=== PATIENT | female | born 1940 | race Caucasian/White ===

== ENCOUNTER 2019-01-17 08:00 | Outpatient (CLI) | payer MEDICARE ==
[2019-01-17 13:38] LABS: ALBUMIN 4.1 g/dL (3.2-5.5); ALBUMIN/GLOBULIN RATIO 1.2 (1.0-2.2); ALKALINE PHOSPHATASE 90 IU/L (42-121); ALT ALANINE AMINOTRANSFERASE 22 IU/L (10-60); AST ASPARTATE AMINOTRANSFERASE 27 IU/L (10-42); BILIRUBIN,TOTAL 0.4 mg/dL (0.2-1.0); BUN - BLOOD UREA NITROGEN 17 mg/dL (6-20); CALCIUM 9.5 mg/dL (8.5-10.3); CARBON DIOXIDE - CO2 26 mmol/L (21-32); CHLORIDE 104 mmol/L (101-111); CHOL/HDL RATIO 3.7 (<4.4); CHOLESTEROL 265 mg/dL; CREATININE 0.4 mg/dL (0.4-1.0); GFR - MDRD 155 (>89); GLUCOSE 96 mg/dL (70-100); HDL CHOLESTEROL 72 mg/dL; LDL CHOLESTEROL,CALCULATED 169 mg/dL; LDL/HDL RATIO 2.3 (<4.4); SODIUM 140 mmol/L (135-145); TOTAL PROTEIN 7.5 g/dL (6.7-8.2); VLDL CHOLESTEROL 24 mg/dL
[2019-01-17 13:39] LABS: BASOPHILS # (AUTO) 0.1 10^3/uL (0.0-0.1); BASOPHILS % (AUTO) 0.9 %; EOSINOPHILS # (AUTO) 0.1 10^3/uL (0.0-0.7); HGB - HEMOGLOBIN 13.4 g/dL (12.0-16.0); LYMPHOCYTES # (AUTO) 2.8 10^3/uL (1.5-3.5); LYMPHOCYTES % (AUTO) 31.8 %; MEAN CORPUSCULAR HEMOGLOBIN 31.4 pg (27.0-31.0); MEAN CORPUSCULAR HGB CONC 31.5 g/dL (32.0-36.0); MEAN CORPUSCULAR VOLUME 99.8 fL (81.0-99.0); MEAN PLATELET VOLUME 10.7 fL (7.9-10.8); MONOCYTES # (AUTO) 0.7 10^3/uL (0.0-1.0); MONOCYTES % (AUTO) 8.5 %; NEUTROPHILS % (AUTO) 57.3 %; PLT - PLATELET COUNT 295 10^3/uL (130-450); RED BLOOD COUNT 4.27 10^6/uL (4.20-5.40); RED CELL DISTRIBUTION WIDTH 12.5 % (12.0-15.0); WHITE BLOOD COUNT 8.7 x10^3/uL (4.8-10.8)
[2019-01-17 13:42] LABS: HB2 TOTAL 13.8 g/dL; HEMOGLOBIN A1C 0.47 g/dL; HEMOGLOBIN A1C % 5.3 % (4.6-6.2)
== END 2019-01-17 08:01 | disposition home or self-care (01) ==
LOC: LAB.WCP 08:00
PROVIDERS: ATTEND Family Medicine
DX: I10 Essential (primary) hypertension (principal); E74.39 Other disorders of intestinal carbohydrate absorption
CPT/HCPCS: 36415; 80053; 80061; 83036; 83721; 85025

== ENCOUNTER 2019-07-13 08:00 | Outpatient (CLI) | payer MEDICARE ==
[2019-07-13 18:37] LABS: BASOPHILS # (AUTO) 0.1 10^3/uL (0.0-0.1); EOSINOPHILS # (AUTO) 0.2 10^3/uL (0.0-0.7); EOSINOPHILS % (AUTO) 1.7 %; HGB - HEMOGLOBIN 12.6 g/dL (12.0-16.0); LYMPHOCYTES # (AUTO) 2.9 10^3/uL (1.5-3.5); LYMPHOCYTES % (AUTO) 31.3 %; MEAN CORPUSCULAR HEMOGLOBIN 30.8 pg (27.0-31.0); MEAN CORPUSCULAR VOLUME 96.3 fL (81.0-99.0); MEAN PLATELET VOLUME 11.4 fL (7.9-10.8); MONOCYTES % (AUTO) 10.8 %; NEUTROPHILS % (AUTO) 54.9 %; PLT - PLATELET COUNT 310 10^3/uL (130-450); RED BLOOD COUNT 4.09 10^6/uL (4.20-5.40); RED CELL DISTRIBUTION WIDTH 12.4 % (12.0-15.0); WHITE BLOOD COUNT 9.2 x10^3/uL (4.8-10.8)
[2019-07-13 18:53] LABS: ALBUMIN 4.1 g/dL (3.2-5.5); ALBUMIN/GLOBULIN RATIO 1.2 (1.0-2.2); BILIRUBIN,TOTAL 0.5 mg/dL (0.2-1.0); CALCIUM 10.1 mg/dL (8.5-10.3); CREATININE 0.7 mg/dL (0.4-1.0); MAGNESIUM 2.2 mg/dL (1.7-2.8); PHOSPHORUS 3.3 mg/dL (2.5-4.6); TOTAL PROTEIN 7.6 g/dL (6.7-8.2)
[2019-07-13 19:46] LABS: FOLATE > 49.60 ng/mL (5.90 - >24.8)
[2019-07-13 20:21] LABS: FREE T4 (FREE THYROXINE) 1.01 ng/dL (0.58-1.64)
== END 2019-07-13 23:59 | disposition home or self-care (01) ==
LOC: LAB.WCP 08:00
PROVIDERS: ATTEND Family Medicine
DX: G31.84 Mild cognitive impairment of uncertain or unknown etiology (principal); R40.4 Transient alteration of awareness; H53.8 Other visual disturbances; I10 Essential (primary) hypertension
CPT/HCPCS: 36415; 80053; 81599; 82607; 82746; 83735; 84100; 84439; 84443; 85025; 86592

== ENCOUNTER 2019-07-24 12:29 | Outpatient (CLI) | payer MEDICARE ==
[2019-07-24] MEDS ORDERED: GADOBUTROL 10 MMOL/10 ML VIAL ONE (12:49)
[2019-07-24] MEDS ORDERED: GADOBUTROL 10 MMOL/10 ML VIAL IVP ONE (13:55)
--- NOTE | 2019-07-24 20:28 | MRI Report ---
Reason: MILD COGNITIVE IMPAIRMENT,TRANSIENT ALTERED MENTAL Procedure Date: 07/24/2019 Accession Number: [id number] / [id number] Procedure: MRI - Brain W/WO CPT Code: Final Report FULL RESULT: EXAM: MRI BRAIN WITHOUT AND WITH CONTRAST EXAM DATE: 07/24/2019 12:54 PM. CLINICAL HISTORY: MILD COGNITIVE IMPAIRMENT,TRANSIENT ALTERED MENTAL. COMPARISON: None. TECHNIQUE: Multiplanar, multisequence T1-weighted and fluid-sensitive MR sequences of the brain were performed before and after administration of intravenous contrast. Sequences optimized for routine evaluation. Other: None. IV Contrast: Gadavist, 10 mL. FINDINGS: Brain Volume: Mild diffuse atrophy. Parenchyma: Extensive confluent T2/FLAIR hyperintensity is visualized throughout the periventricular, deep and subcortical white matter, with extension into the external capsules and anterior temporal lobes. There are innumerable foci of prior microhemorrhage noted throughout the bilateral cerebral hemispheres and a predominantly peripheral distribution suspicious for cerebral amyloid angiopathy. 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 No abnormal enhancement. Ventricles/Cisterns: The ventricles and sulci are mildly prominent due to atrophy. No abnormal extra-axial fluid collection or hemorrhage. Orbits: Changes of cataract extraction are noted bilaterally. Sella Turcica: The pituitary gland, cavernous sinuses, suprasellar cistern and optic chiasm are unremarkable. IAC: Symmetric and unremarkable. Vasculature: Normal signal flow void is seen in the major arterial structures at the skull base. The dural sinuses are patent and enhance normally. Sinuses: No acute sinus disease. Bones: No focal pathologic appearing marrow signal changes. Other: None. IMPRESSION: 1. Innumerable foci of prior microhemorrhage throughout the bilateral cerebral hemispheres in a predominantly peripheral distribution. This finding is suspicious for cerebral amyloid angiopathy. 2. Extensive confluent cerebral white matter changes, nonspecific. In the absence of prior chemoradiation or other systemic exposure, favor advanced sequelae of chronic microvascular ischemia in the setting of amyloid angiopathy. While involvement of the external capsules and anterior temporal lobes can be seen in the setting of CADASIL, this condition typically presents in younger patients. 3. No evidence of acute infarct or hemorrhage. RADIA
== END 2019-07-24 12:30 | disposition home or self-care (01) ==
LOC: DI 12:29
PROVIDERS: ATTEND Family Medicine
DX: G31.84 Mild cognitive impairment of uncertain or unknown etiology (principal); R40.4 Transient alteration of awareness; H53.8 Other visual disturbances; I10 Essential (primary) hypertension
CPT/HCPCS: 70553; A9585

== ENCOUNTER 2019-08-21 12:17 | Outpatient (CLI) | payer MEDICARE ==
[2019-08-21 20:03] LABS: FREE T4 (FREE THYROXINE) 1.87 ng/dL (0.58-1.64)
== END 2019-08-21 23:59 | disposition home or self-care (01) ==
LOC: LAB.WCP 12:17
PROVIDERS: ATTEND Physician Assistant Medical
DX: E03.9 Hypothyroidism, unspecified (principal)
CPT/HCPCS: 36415; 84439; 84443

== ENCOUNTER 2021-02-12 07:36 | Outpatient (CLI) | payer MEDICARE ==
[2021-02-12 12:29] LABS: BASOPHILS # (AUTO) 0.1 10^3/uL (0.0-0.1); BASOPHILS % (AUTO) 0.6 %; EOSINOPHILS # (AUTO) 0.1 10^3/uL (0.0-0.7); HGB - HEMOGLOBIN 13.2 g/dL (12.0-16.0); LYMPHOCYTES # (AUTO) 2.4 10^3/uL (1.5-3.5); LYMPHOCYTES % (AUTO) 17.8 %; MEAN CORPUSCULAR HEMOGLOBIN 31.6 pg (27.0-31.0); MEAN CORPUSCULAR HGB CONC 32.2 g/dL (32.0-36.0); MEAN CORPUSCULAR VOLUME 98.1 fL (81.0-99.0); MEAN PLATELET VOLUME 10.7 fL (7.9-10.8); MONOCYTES # (AUTO) 1.2 10^3/uL (0.0-1.0); MONOCYTES % (AUTO) 9.2 %; NEUTROPHILS # (AUTO) 9.4 10^3/uL (1.5-6.6); NEUTROPHILS % (AUTO) 70.8 %; PLT - PLATELET COUNT 301 10^3/uL (130-450); RED BLOOD COUNT 4.18 10^6/uL (4.20-5.40); RED CELL DISTRIBUTION WIDTH 12.9 % (12.0-15.0); WHITE BLOOD COUNT 13.3 x10^3/uL (4.8-10.8)
[2021-02-12 12:51] LABS: ALBUMIN 4.1 g/dL (3.2-5.5); ALBUMIN/GLOBULIN RATIO 1.3 (1.0-2.2); ALKALINE PHOSPHATASE 96 IU/L (42-121); ALT ALANINE AMINOTRANSFERASE 20 IU/L (10-60); AST ASPARTATE AMINOTRANSFERASE 26 IU/L (10-42); BUN - BLOOD UREA NITROGEN 15 mg/dL (6-20); CALCIUM 9.5 mg/dL (8.5-10.3); CARBON DIOXIDE - CO2 27 mmol/L (21-32); CHLORIDE 102 mmol/L (101-111); CHOL/HDL RATIO 3.6 (<4.4); CHOLESTEROL 231 mg/dL; CREATININE 0.7 mg/dL (0.4-1.0); GFR - MDRD 81 (>89); GLUCOSE 106 mg/dL (70-100); HDL CHOLESTEROL 65 mg/dL; LDL CHOLESTEROL,CALCULATED 142 mg/dL; LDL/HDL RATIO 2.2 (<4.4); POTASSIUM 3.9 mmol/L (3.5-5.0); SODIUM 138 mmol/L (135-145); TOTAL PROTEIN 7.2 g/dL (6.7-8.2); TRIGLYCERIDES 119 mg/dL; VLDL CHOLESTEROL 24 mg/dL
[2021-02-12 12:57] LABS: THYROID STIMULATING HORMONE 2.69 uIU/mL (0.34-5.60)
== END 2021-02-12 07:37 | disposition home or self-care (01) ==
LOC: LAB.N 07:36
PROVIDERS: ATTEND Physician Assistant Medical
DX: G31.84 Mild cognitive impairment of uncertain or unknown etiology (principal); I10 Essential (primary) hypertension; E03.9 Hypothyroidism, unspecified
CPT/HCPCS: 36415; 80053; 80061; 82607; 83721; 84443; 85025

== ENCOUNTER 2021-03-24 14:46 | Outpatient (CLI) | payer MEDICARE ==
[2021-03-24 17:59] LABS: BASOPHILS # (AUTO) 0.1 10^3/uL (0.0-0.1); BASOPHILS % (AUTO) 0.9 %; EOSINOPHILS # (AUTO) 0.1 10^3/uL (0.0-0.7); HCT - HEMATOCRIT 40.8 % (37.0-47.0); HGB - HEMOGLOBIN 13.5 g/dL (12.0-16.0); LYMPHOCYTES # (AUTO) 3.5 10^3/uL (1.5-3.5); LYMPHOCYTES % (AUTO) 37.2 %; MEAN CORPUSCULAR HEMOGLOBIN 31.5 pg (27.0-31.0); MEAN CORPUSCULAR HGB CONC 33.1 g/dL (32.0-36.0); MEAN CORPUSCULAR VOLUME 95.3 fL (81.0-99.0); MEAN PLATELET VOLUME 10.9 fL (7.9-10.8); MONOCYTES # (AUTO) 0.9 10^3/uL (0.0-1.0); MONOCYTES % (AUTO) 10.1 %; NEUTROPHILS # (AUTO) 4.7 10^3/uL (1.5-6.6); NEUTROPHILS % (AUTO) 50.5 %; PLT - PLATELET COUNT 287 10^3/uL (130-450); RED BLOOD COUNT 4.28 10^6/uL (4.20-5.40); RED CELL DISTRIBUTION WIDTH 12.7 % (12.0-15.0); WHITE BLOOD COUNT 9.3 x10^3/uL (4.8-10.8)
== END 2021-03-24 14:47 | disposition home or self-care (01) ==
LOC: LAB.N 14:46
PROVIDERS: ATTEND Physician Assistant Medical
DX: D72.829 Elevated white blood cell count, unspecified (principal)
CPT/HCPCS: 36415; 85025

== ENCOUNTER 2021-12-05 08:00 | Outpatient (CLI) | payer MEDICARE ==
--- NOTE | 2021-12-05 11:53 | XRAY Report ---
PROCEDURE: Tib/Fib RT INDICATIONS: CONTUSION OF RIGHT LOWER LEG, SEQUELA TECHNIQUE: 2 views of the tibia and fibula were acquired. COMPARISON: None FINDINGS: Bones: No fractures or dislocations. No suspicious bony lesions. Soft tissues: No suspicious soft tissue calcifications or masses. IMPRESSION: No acute fracture. No osseous lesion. If symptoms and/or clinical suspicion for pathology continue, f urther assessment with repeat plain films, or advanced imaging (e.g., CT, MRI, or bone scan) is recom mended for further assessment. Reviewed by: Apolinar Kumar MD on 12/05/2021 11:51 AM PDT Approved by: Apolinar Kumar MD on 12/05/2021 11:51 AM PDT Station ID: [id number]
== END 2021-12-05 23:59 | disposition home or self-care (01) ==
LOC: DI.N 08:00
PROVIDERS: ATTEND Physician Assistant Medical
DX: S80.11XA Contusion of right lower leg, initial encounter (principal)

== ENCOUNTER 2021-12-23 17:03 | Outpatient (CLI) | payer MEDICARE ==
[2021-12-23 20:45] LABS: BASOPHILS # (AUTO) 0.1 10^3/uL (0.0-0.1); BASOPHILS % (AUTO) 0.7 %; EOSINOPHILS # (AUTO) 0.1 10^3/uL (0.0-0.7); EOSINOPHILS % (AUTO) 0.7 %; HCT - HEMATOCRIT 38.8 % (37.0-47.0); HGB - HEMOGLOBIN 12.6 g/dL (12.0-16.0); LYMPHOCYTES # (AUTO) 3.2 10^3/uL (1.5-3.5); LYMPHOCYTES % (AUTO) 30.2 %; MEAN CORPUSCULAR HEMOGLOBIN 31.3 pg (27.0-31.0); MEAN CORPUSCULAR HGB CONC 32.5 g/dL (32.0-36.0); MEAN CORPUSCULAR VOLUME 96.3 fL (81.0-99.0); MEAN PLATELET VOLUME 11.5 fL (7.9-10.8); MONOCYTES # (AUTO) 1.1 10^3/uL (0.0-1.0); MONOCYTES % (AUTO) 10.7 %; NEUTROPHILS # (AUTO) 6.1 10^3/uL (1.5-6.6); NEUTROPHILS % (AUTO) 57.4 %; PLT - PLATELET COUNT 306 10^3/uL (130-450); RED BLOOD COUNT 4.03 10^6/uL (4.20-5.40); RED CELL DISTRIBUTION WIDTH 12.6 % (12.0-15.0); WHITE BLOOD COUNT 10.6 x10^3/uL (4.8-10.8)
[2021-12-23 20:49] LABS: ALBUMIN 3.9 g/dL (3.2-5.5); ALBUMIN/GLOBULIN RATIO 1.2 (1.0-2.2); ALKALINE PHOSPHATASE 112 IU/L (42-121); ALT ALANINE AMINOTRANSFERASE 16 IU/L (10-60); AST ASPARTATE AMINOTRANSFERASE 23 IU/L (10-42); BILIRUBIN,TOTAL 0.5 mg/dL (0.2-1.0); BUN - BLOOD UREA NITROGEN 36 mg/dL (6-20); CALCIUM 9.8 mg/dL (8.5-10.3); CARBON DIOXIDE - CO2 26 mmol/L (21-32); CHLORIDE 100 mmol/L (101-111); CREATININE 1.1 mg/dL (0.4-1.0); ETOH - ETHANOL < 5.0 mg/dL; GFR - MDRD 48 (>89); GLUCOSE 97 mg/dL (70-100); POTASSIUM 4.1 mmol/L (3.5-5.0); SODIUM 136 mmol/L (135-145); TOTAL PROTEIN 7.1 g/dL (6.7-8.2)
[2021-12-23 21:08] LABS: THYROID STIMULATING HORMONE < 0.08 uIU/mL (0.34-5.60)
[2021-12-23 21:10] LABS: FREE T4 (FREE THYROXINE) 1.54 ng/dL (0.58-1.64)
== END 2021-12-23 17:04 | disposition home or self-care (01) ==
LOC: LAB.N 17:03
PROVIDERS: ATTEND Physician Assistant Medical
DX: E03.9 Hypothyroidism, unspecified (principal); R41.0 Disorientation, unspecified
CPT/HCPCS: 36415; 80053; 84439; 84443; 85025; G0480; 80320; 81001; 81003; 87086